=== PATIENT | female | born 1945 | race Caucasian/White ===

== ENCOUNTER 2022-02-14 13:36 | Emergency (ER) | payer BC, MEDICARE ==
[~2022-02-14] VITALS: Ht 162.6 cm; Wt 72.7 kg
[2022-02-14 14:01] VITALS: BP 130/82
== END 2022-02-14 15:50 | disposition home or self-care (01) ==
LOC: ER 13:36
DX: S81.811A Laceration without foreign body, right lower leg, initial encounter (principal); J45.909 Unspecified asthma, uncomplicated; W19.XXXA Unspecified fall, initial encounter; Y93.89 Activity, other specified; Y92.89 Other specified places as the place of occurrence of the external cause; Y99.8 Other external cause status
CPT/HCPCS: 71045; 99283; J7030; A6449